=== PATIENT | male | born 1955 | race Caucasian/White ===

== ENCOUNTER 2021-06-23 13:02 | Emergency (ER) | payer OTHER, SELFPAY ==
[~2021-06-23] VITALS: Ht 185.4 cm; Wt 158.8 kg
--- NOTE | 2021-06-23 13:07 | NUR ---
Patient to ER bed 7 to gown for evaluation. Side rails up. assumed care.
[2021-06-23 13:10] VITALS: BP_SYST 142
--- NOTE | 2021-06-23 13:16 | NUR ---
ER at bedside examining patient.
[2021-06-23] MEDS ORDERED: ADENOSINE 6MG/2ML VIAL ONE (13:21)
--- NOTE | 2021-06-23 13:27 | NUR ---
adenosine 12 mg IVP given
--- NOTE | 2021-06-23 13:30 | NUR ---
summ: pt. came in with c/o heart palpitations and hx. of AFIB, pt. diaphoretic, AAOX4, EKG done SVT given to Dr. Guerrero, IV placed labs drawn, adenosine pushed and pt. HR went from 182 to 107 per color worker.
[2021-06-23] MEDS ORDERED: ADENOSINE 6MG/2ML VIAL IVP ONE (14:00)
[2021-06-23 15:03] LABS: BASOPHILS # (AUTO) 0.1 K/uL (0.0-0.2); EOSINOPHILS # (AUTO) 0.4 K/uL (0.0-0.4); EOSINOPHILS % (AUTO) 4.8 % (0.0-4.0); HEMATOCRIT 43.1 % (36-54); HEMOGLOBIN 14.7 g/dL (14.0-18.0); LYMPHOCYTES # (AUTO) 1.9 K/uL (1.0-5.5); LYMPHOCYTES % (AUTO) 22.7 % (20.5-51.5); MEAN CORPUSCULAR HEMOGLOBIN 30 pg (27-31); MEAN CORPUSCULAR HGB CONC 34 % (32-36); MEAN CORPUSCULAR VOLUME 88 fL (79.0-98.0); MONOCYTES # (AUTO) 0.6 K/uL (0.0-1.0); MONOCYTES % (AUTO) 6.7 % (1.7-9.3); NEUTROPHILS # (AUTO) 5.3 K/uL (1.8-7.7); NEUTROPHILS % (AUTO) 64.8 % (40.0-70.0); PLATELET COUNT (AUTO) 198 K/uL (130-430); RED BLOOD CELL COUNT(AUTO) 4.89 MIL/uL (4.2-6.2); RED CELL DISTRIBUTION WIDTH 13.9 % (9.0-15.0); WHITE BLOOD COUNT (AUTO) 8.2 K/uL (4.8-10.8)
[2021-06-23 15:06] LABS: CALCIUM 11.4 mg/dL (8.4-11.0); CREATININE 1.11 mg/dL (0.55-1.30); POTASSIUM 4.4 mmol/L (3.5-5.1)
[2021-06-23 15:15] LABS: ALBUMIN 4.1 g/dL (3.4-4.8); TOTAL BILIRUBIN 0.7 mg/dL (0.0-1.0)
--- NOTE | 2021-06-23 17:35 | NUR ---
REPEAT EKG GIVEN TO DR PARKER
[2021-06-23 17:56] VITALS: BP_SYST 117
--- NOTE | 2021-06-23 17:57 | NUR ---
Patient given written and verbal discharge instructions and verbalizes understanding. ER MD discussed with patient the results and treatment provided. Patient in stable condition. ID arm band removed. IV catheter removed intact and dressing applied, no active bleeding. Rx of NONE given. Patient educated on pain management and to follow up with PMD. Pain Scale 0/10. Opportunity for questions provided and answered. Medication side effect fact sheet provided.
== END 2021-06-23 17:56 | disposition home or self-care (01) ==
LOC: SED 13:02
DX: I47.1 Supraventricular tachycardia (principal)
CPT/HCPCS: 36415; 71045; 80053; 83880; 84484; 85025; 93005; 94760; 96374; 99285; J0153